=== PATIENT | male | born 1985 | race Caucasian/White ===

== ENCOUNTER → 2016-11-23 | Outpatient (CLI) | payer OTHER | LOC: COL.RAD 07:44 | DX: R20.0 Anesthesia of skin (principal) | CPT/HCPCS: A9585 ==

== ENCOUNTER → 2017-03-15 | Outpatient (REF) | LOC: WSOH 09:42 | DX: Z02.89 Encounter for other administrative examinations (principal) | CPT/HCPCS: G0463 ==